=== PATIENT | female | born 1950 | race Caucasian/White ===

== ENCOUNTER 2017-04-20 09:37 | Outpatient (CLI) | payer OTHER ==
--- NOTE | 2017-04-22 12:24 | Mammography Report ---
DIGITAL SCREENING MAMMOGRAM: 04/20/2017 CLINICAL INDICATION: A 67-year-old for screening. The patient reports having had previous mammograms in [place], [place], but films are not yet avai lable for direct comparison. If they become available, an addendum will be issued. Otherwise, this will serve as a new baseline. TECHNIQUE: Routine CC and MLO projections were obtained of the breasts. FINDINGS: The breasts demonstrate scattered fibroglandular densities bilaterally. No suspicious mas ses, clustered microcalcifications, or regions of architectural distortion are identified. IMPRESSION: NEGATIVE EXAMINATION. RECOMMENDATION: Routine annual screening unless otherwise clinically indicated. BIRADS CATEGORY 1 - NEGATIVE. STANDARD QUALIFYING STATEMENTS 1. This examination was reviewed with the aid of Computer-Aided Detection (CAD). 2. A negative or benign imaging report should not delay biopsy if clinically suspicious findings are present. Consider surgical consultation if warranted. More than 5% of cancers are not identified by i maging. 3. Dense breasts may obscure an underlying neoplasm. JOB #: [id number] EXT JOB #:[id number]
== END 2017-04-20 09:38 | disposition home or self-care (01) ==
LOC: DI 09:37
PROVIDERS: ATTEND Internal Medicine
DX: Z12.31 Encounter for screening mammogram for malignant neoplasm of breast (principal)
CPT/HCPCS: 77067

== ENCOUNTER 2017-12-01 08:22 | Outpatient (CLI) | payer MEDICARE, OTHER ==
[2017-12-01 12:36] LABS: BASOPHILS % (AUTO) 0.4 %; EOSINOPHILS # (AUTO) 0.2 10^3/uL (0.0-0.7); EOSINOPHILS % (AUTO) 2.9 %; HGB - HEMOGLOBIN 14.5 g/dL (12.0-16.0); LYMPHOCYTES # (AUTO) 2.1 10^3/uL (1.5-3.5); LYMPHOCYTES % (AUTO) 27.8 %; MEAN CORPUSCULAR HEMOGLOBIN 32.6 pg (27.0-31.0); MEAN CORPUSCULAR HGB CONC 33.7 g/dL (32.0-36.0); MEAN CORPUSCULAR VOLUME 96.7 fL (81.0-99.0); MEAN PLATELET VOLUME 8.7 fL (7.9-10.8); MONOCYTES # (AUTO) 0.6 10^3/uL (0.0-1.0); MONOCYTES % (AUTO) 8.1 %; NEUTROPHILS # (AUTO) 4.6 10^3/uL (1.5-6.6); NEUTROPHILS % (AUTO) 60.8 %; PLT - PLATELET COUNT 198 10^3/uL (130-450); RED BLOOD COUNT 4.44 10^6/uL (4.20-5.40); RED CELL DISTRIBUTION WIDTH 13.3 % (12.0-15.0); WHITE BLOOD COUNT 7.5 x10^3/uL (4.8-10.8)
[2017-12-01 12:54] LABS: ALBUMIN 4.2 g/dL (3.2-5.5); ALBUMIN/GLOBULIN RATIO 1.5 (1.0-2.2); ALKALINE PHOSPHATASE 67 IU/L (42-121); ALT ALANINE AMINOTRANSFERASE 16 IU/L (10-60); AST ASPARTATE AMINOTRANSFERASE 20 IU/L (10-42); BILIRUBIN,TOTAL 0.6 mg/dL (0.2-1.0); BUN - BLOOD UREA NITROGEN 14 mg/dL (6-20); CARBON DIOXIDE - CO2 28 mmol/L (21-32); CHLORIDE 108 mmol/L (101-111); CHOL/HDL RATIO 3.8 (<4.4); CHOLESTEROL 214 mg/dL; CREATININE 0.7 mg/dL (0.4-1.0); GFR - MDRD 83 (>89); GLUCOSE 96 mg/dL (70-100); HDL CHOLESTEROL 56 mg/dL; LDL CHOLESTEROL,CALCULATED 146 mg/dL; LDL/HDL RATIO 2.6 (<4.4); SODIUM 140 mmol/L (135-145); VLDL CHOLESTEROL 12 mg/dL
== END 2017-12-01 08:23 | disposition home or self-care (01) ==
LOC: LAB.WCP 08:22
PROVIDERS: ATTEND Family Medicine
DX: E03.9 Hypothyroidism, unspecified (principal)
CPT/HCPCS: 36415; 80053; 80061; 83721; 84443; 85025

== ENCOUNTER 2018-05-26 08:53 | Outpatient (CLI) | payer MEDICARE ==
--- NOTE | 2018-05-26 16:09 | XRAY Report ---
Reason: LOW BACK PAIN,PAIN IN LEFT THIGH Procedure Date: 05/26/2018 Accession Number: [id number] / [id number] Procedure: XR - Lumbar Spine 2 View CPT Code: FULL RESULT: EXAM: LUMBOSACRAL SPINE RADIOGRAPHY EXAM DATE: 05/26/2018 09:15 AM. CLINICAL HISTORY: Low back pain, pain in left thigh. COMPARISONS: None. TECHNIQUE: 3 views. FINDINGS: Alignment: 3 mm anterolisthesis of L4 on L5. No scoliosis. Bones: Five jaz-xxe-jajbitp lumbar vertebral bodies are present. No fractures or bone lesions. Disks: Disk space height is mostly maintained, mild loss of height at L5-S1. Facets: There are multilevel facet degenerative changes mild in the upper lumbar spine and at least moderate at L4 and L5. Sacroiliac Joints: Unremarkable. Soft Tissues: Normal. The visualized bowel gas pattern is normal. IMPRESSION: Degenerative changes with grade 1 anterolisthesis at L4 as described. RADIA
--- NOTE | 2018-05-26 16:09 | XRAY Report ---
Reason: LOW BACK PAIN,PAIN IN LEFT THIGH Procedure Date: 05/26/2018 Accession Number: [id number] / [id number] Procedure: XR - Hip w/Pelvis 2-3V LT CPT Code: FULL RESULT: EXAM: LEFT HIP AND PELVIS RADIOGRAPHY EXAM DATE: 05/26/2018 09:15 AM. HISTORY: Low back pain, pain in left thigh. COMPARISONS: None. TECHNIQUE: 1 view of the pelvis and 1 view of the hip. FINDINGS: Bones: Normal. No fracture or bone lesion. Joints: Moderate femoral acetabular joint space narrowing on the left. Soft Tissues: Normal. No soft tissue swelling. IMPRESSION: Left greater than right hip joint degenerative disease. RADIA
== END 2018-05-26 08:54 | disposition home or self-care (01) ==
LOC: DI 08:53
PROVIDERS: ATTEND Family Medicine
DX: M54.5 Low back pain (principal); M79.652 Pain in left thigh; M43.16 Spondylolisthesis, lumbar region; M16.0 Bilateral primary osteoarthritis of hip
CPT/HCPCS: 72100

== ENCOUNTER 2018-06-01 13:07 | Outpatient (CLI) | payer MEDICARE ==
--- NOTE | 2018-06-05 09:17 | DEXA Report ---
Reason: ASYMPTOMATIC POSTMENOPAUSAL STATUS Procedure Date: 06/01/2018 Accession Number: [id number] / [id number] Procedure: DEX - Dexa Spine and/or Hip CPT Code: FULL RESULT: EXAM: Dexa Spine and/or Hip DATE: 06/01/2018 1:39 PM CLINICAL HISTORY: ASYMPTOMATIC POSTMENOPAUSAL STATUS TECHNIQUE: Dual energy x-ray absorptiometry (DXA) was performed on a [employer] System. Regions measured are the AP Spine, femoral neck, and if needed forearm. COMPARISON: 05/25/2016. In accordance with the International Society for Clinical Densitometry (ISCD) guidelines, data from previous exams may be reanalyzed using current recommendations and techniques. This is done to allow a more accurate basis for comparison with the current study. FINDINGS: The data for the lumbar spine is as follows: BMD (g/cm/cm) T-SCORE Z-SCORE REGION L1 0.892 -2.0 0.2 L2 0.933 -2.2 -0.1 L3 0.926 -2.3 -0.1 L4 0.987 -1.8 0.4 TOTAL 0.938 -2.0 0.2 NOTE: All evaluable vertebrae are used for classification The data for the hip is as follows: BMD (g/cm/cm) T-SCORE Z-SCORE REGION Neck 0.779 -1.9 0.1 TOTAL 0.651 -2.8 -1.0 NOTE: The femoral neck or total proximal femur, whichever is lowest, is used for classification. DXA RESULTS SUMMARY: Spine SCAN DATE AGE BMD CHANGE VS CHANGE VS PREVIOUS PREVIOUS % 06/01/2019 [age] 0[age]938 0.024 2.6 05/25/2016 [age] 0[age]914 * Denotes significant change at the 95% confidence level. Denotes dissimilar scan types or analysis methods. DXA RESULTS SUMMARY: Hip SCAN DATE AGE BMD CHANGE VS CHANGE VS PREVIOUS PREVIOUS % [birth year]2018 [age] 0.651 -0.015 -2.3 05/25/2016 66.3 0.666 * Denotes significant change at the 95% confidence level. Denotes dissimilar scan types or analysis methods. IMPRESSION: THE WHO CLASSIFICATION BASED ON THE INTERNATIONAL REFERENCE STANDARD IS OSTEOPOROSIS. THE FRACTURE RISK IS HIGH. RECOMMENDATION: Patients with diagnosis of osteoporosis or osteopenia should have regular bone mineral density assessment. For those eligible for Medicare, routine testing is allowed once every 2 years. Testing frequency can be increased for patients who have rapidly progressing disease or for those who are receiving medical therapy to restore bone mass. COMMENT: World Health Organization (WHO) definitions for osteoporosis and osteopenia: NORMAL BMD: T-score at -1.0 or higher, fracture risk is low OSTEOPENIA BMD: T-score between -1.0 and -2.5, fracture risk is increased. OSTEOPOROSIS BMD: T-score at -2.5 or lower, fracture risk is high. National Osteoporosis Foundation recommends: 1. Obtain adequate dietary calcium (at least 1200 mg per day) and vitamin D (400-800 international units per day). 2. Participate, as appropriate, in regular weightbearing and muscle-strengthening exercise. 3. Avoid tobacco use and reduce alcohol and caffeine intake. 4. For more detailed information see the website at www.NOF.org.
== END 2018-06-01 13:08 | disposition home or self-care (01) ==
LOC: DI 13:07
PROVIDERS: ATTEND Family Medicine
DX: M81.0 Age-related osteoporosis without current pathological fracture (principal); Z78.0 Asymptomatic menopausal state
CPT/HCPCS: 77080

== ENCOUNTER 2018-06-15 12:54 | Outpatient (CLI) | payer MEDICARE ==
--- NOTE | 2018-06-16 11:45 | Mammography Report ---
Reason: SCREENING MAMMO Procedure Date: 06/15/2018 Accession Number: [id number] / [id number] Procedure: ETHAN - Screening Mammo w/Mitchel CPT Code: FULL RESULT: EXAM: Screening Mammo w/Mitchel DATE: 06/15/2018 1:22 PM CLINICAL HISTORY: Routine screening TECHNIQUE: Bilateral CC and MLO views were obtained. COMPARISON: 04/20/2017, 11/14/2014 and 11/16/2012 FINDINGS: There are scattered fibroglandular densities. There is no significant interval change. No suspicious masses, clustered microcalcifications, or regions of architectural distortion are identified. IMPRESSION: Negative examination RECOMMENDATION: Routine annual screening unless otherwise clinically indicated. BIRADS CATEGORY 1: Negative STANDARD QUALIFYING STATEMENTS: 1. This examination was not reviewed with the aid of Computer-Aided Detection (CAD). 2. A negative or benign imaging report should not delay biopsy if clinically suspicious findings are present. Consider surgical consultation if warrented. More than 5% of cancers are not identified by imaging. 3. Dense breasts may obscure an underlying neoplasm. 4. This examination was reviewed with the aid of 3D breast imaging (tomosynthesis).
== END 2018-06-15 12:55 | disposition home or self-care (01) ==
LOC: DI 12:54
DX: Z12.31 Encounter for screening mammogram for malignant neoplasm of breast (principal)
CPT/HCPCS: 77063; 77067

== ENCOUNTER 2018-12-01 08:00 | Outpatient (CLI) | payer MEDICARE ==
[2018-12-01 19:03] LABS: ALBUMIN 3.9 g/dL (3.2-5.5); ALBUMIN/GLOBULIN RATIO 1.3 (1.0-2.2); ALKALINE PHOSPHATASE 74 IU/L (42-121); ALT ALANINE AMINOTRANSFERASE 18 IU/L (10-60); AST ASPARTATE AMINOTRANSFERASE 23 IU/L (10-42); BILIRUBIN,TOTAL 0.5 mg/dL (0.2-1.0); BUN - BLOOD UREA NITROGEN 16 mg/dL (6-20); CALCIUM 8.8 mg/dL (8.5-10.3); CARBON DIOXIDE - CO2 28 mmol/L (21-32); CHLORIDE 107 mmol/L (101-111); CHOL/HDL RATIO 3.4 (<4.4); CHOLESTEROL 192 mg/dL; CREATININE 0.7 mg/dL (0.4-1.0); GFR - MDRD 83 (>89); GLUCOSE 83 mg/dL (70-100); HDL CHOLESTEROL 56 mg/dL; LDL CHOLESTEROL,CALCULATED 125 mg/dL; LDL/HDL RATIO 2.2 (<4.4); SODIUM 141 mmol/L (135-145); TOTAL PROTEIN 6.9 g/dL (6.7-8.2); VLDL CHOLESTEROL 11 mg/dL
[2018-12-02 14:40] LABS: HEPATITIS C ANTIBODY NON-REACTIVE (NON-REACTIVE)
[2018-12-04 16:36] LABS: HIV AG/AB 4TH GEN NON-REACTIVE (NON-REACTIVE)
[2018-12-05 10:24] LABS: HSV 2 IGG TYPE SPECIFIC AB <0.90 index
== END 2018-12-01 23:59 | disposition home or self-care (01) ==
LOC: LAB.WCP 08:00
PROVIDERS: ATTEND Family Medicine
DX: Z13.220 Encounter for screening for lipoid disorders (principal); Z11.3 Encounter for screening for infections with a predominantly sexual mode of transmission; R10.9 Unspecified abdominal pain; E03.9 Hypothyroidism, unspecified
CPT/HCPCS: 36415; 80053; 80061; 81599; 84443; 86592; 86695; 86696; 86803; 87491; 87591; G0475; 83721; 87389

== ENCOUNTER 2018-12-14 11:14 | Outpatient (CLI) | payer MEDICARE ==
--- NOTE | 2018-12-14 13:39 | Ultrasound Report ---
Reason: ABDOMINAL PAIN Procedure Date: 12/14/2018 Accession Number: [id number] / [id number] Procedure: US - Pelvic w/Transvaginal CPT Code: FULL RESULT: EXAM: PELVIC ULTRASOUND EXAM DATE: 12/14/2018 11:43 AM. CLINICAL HISTORY: Abdominal pain. COMPARISON: None. TECHNIQUE: Realtime transabdominal pelvic scan performed to identify the uterus and adnexa and as an overview of other pelvic structures, followed by transvaginal scan to provide greater detail of the uterus and adnexa, with static image documentation. FINDINGS: Uterus: 6.1 x 2.0 x 3.2 cm, volume 20 cc. Anteverted position. Normal overall size and echotexture. Prominent periuterine venous plexus is noted. Masses: None. Endometrium: 3 mm. Fluid is seen within the fundal endometrium. Cervix: Unremarkable aside from nabothian cysts. Right Ovary: 1.5 x 1.0 x 0.8 cm, volume 0.6 cc. Normal echotexture and blood flow. Left Ovary: Not seen. Free Fluid: None. Other: None. IMPRESSION: Prominent periuterine venous plexus. This finding is nonspecific but can sometimes be seen with pelvic congestion syndrome/pelvic varices. RADIA
== END 2018-12-14 11:15 | disposition home or self-care (01) ==
LOC: DI 11:14
PROVIDERS: ATTEND Family Medicine
DX: R10.9 Unspecified abdominal pain (principal)
CPT/HCPCS: 76830; 76856

== ENCOUNTER 2019-01-25 07:20 | Day surgery (SDC) | payer MEDICARE ==
[2019-01-25] MEDS ORDERED: LACTATED RINGERS 1,000 ML IV ONE (07:30)
[2019-01-25] MEDS ORDERED: MIDAZOLAM 2 MG/2 ML VIAL IVP ONE (09:34)
[2019-01-25] MEDS ORDERED: fentaNYL 100 MCG/2 ML VIAL IVP ONE (09:34)
[2019-01-25] MEDS ORDERED: LIDO GARGLE 30 ML BOTTLE TOP ONE (09:36)
[2019-01-25] MEDS ORDERED: LIDO GARGLE 30 ML BOTTLE ONE (09:36)
[2019-01-25 10:30] VITALS: BP 116/70
== END 2019-01-25 07:21 | disposition home or self-care (01) ==
LOC: SDS 07:20
PROVIDERS: ATTEND Surgery
PROC: 0DJD8ZZ Inspection of Lower Intestinal Tract, Via Natural or Artificial Opening Endoscopic (ICD-10-PCS; principal; 2019-01-25 09:15)
PROC: 0DJ08ZZ Inspection of Upper Intestinal Tract, Via Natural or Artificial Opening Endoscopic (ICD-10-PCS; 2019-01-25 09:15)
DX: R63.4 Abnormal weight loss (principal); R10.13 Epigastric pain; R19.4 Change in bowel habit; K57.30 Diverticulosis of large intestine without perforation or abscess without bleeding; K64.8 Other hemorrhoids; E03.9 Hypothyroidism, unspecified; Z79.899 Other long term (current) drug therapy; Z63.4 Disappearance and death of family member; Z87.891 Personal history of nicotine dependence; Z68.20 Body mass index [BMI] 20.0-20.9, adult
CPT/HCPCS: 43235; 45378; A9270; J7120

== ENCOUNTER 2019-03-09 07:21 | Outpatient (CLI) | payer MEDICARE ==
--- NOTE | 2019-03-09 18:20 | MRI Report ---
Reason: SHOULDER PAIN FOREARM PAIN,LT, CERVICAL RADICULOPA Procedure Date: 03/09/2019 Accession Number: [id number] / [id number] Procedure: MRI - Cervical Spine W/O CPT Code: FULL RESULT: EXAM: MRI CERVICAL SPINE WITHOUT CONTRAST EXAM DATE: 03/09/2019 07:37 AM. CLINICAL HISTORY: Shoulder pain, forearm pain, left, cervical radiculopathy. COMPARISONS: None. TECHNIQUE: Multiplanar, multisequence T1-weighted and fluid-sensitive sequences of the cervical spine without contrast. Other: None. FINDINGS: Neurologic Structures: The visualized posterior fossa structures are unremarkable. No signal abnormality in the visualized spinal cord. Alignment: No scoliosis or spondylolisthesis. Bone Marrow: No gross fractures or bone lesions. No marrow edema. Interspace Levels/Facets: C1-C2: Arthritic changes at the anterior articulation. Some subjacent marrow edema. No stenosis. C2-C3: Mild broad-based disk bulge is seen. Prominent facets. No central or foraminal stenosis. C3-C4: Right paracentral disk osteophyte complex touches the right ventral cord. Severe left foraminal stenosis. Moderate right foraminal stenosis. C4-C5: Mild broad-based disk bulge is present. Hypertrophic facets. Mild central stenosis. Moderate bilateral foraminal stenosis. C5-C6: Disk osteophyte complex. Hypertrophic facets and ligamentum flavum. Mild central stenosis. Moderate to severe bilateral foraminal stenosis. C6-C7: Disk dehydration, broad-based disk bulge. Mild central stenosis. Mild bilateral foraminal stenosis. C7-T1: Some disk dehydration. No stenosis. Musculature: Moderate fatty atrophy of the multifidus muscle is present. Other: The paravertebral and prevertebral soft tissues are normal. IMPRESSION: 1. Posterior fossa structures appear unremarkable. Spinal cord also normal. Moderate fatty atrophy of the multifidus muscle is seen. No scoliosis or listhesis. No fractures. 2. C2-C3 shows a mild broad-based bulge, no stenosis. 3. C3-C4 shows severe left foraminal stenosis and moderate right foraminal stenosis. Mild central stenosis. 4. C4-C5 shows hypertrophic facets, mild central stenosis and moderate bilateral foraminal stenosis. 5. C5-C6 shows disk osteophyte complex, mild central stenosis and moderate to severe bilateral foraminal stenosis. 6. C6-C7 shows disk dehydration. Mild central stenosis and mild bilateral foraminal stenosis. 7. C7-T1 shows some disk dehydration, no stenosis. RADIA
--- NOTE | 2019-03-09 21:39 | MRI Report ---
Reason: SHOULDER PAIN FOREARM PAIN,LT, CERVICAL RADICULOPA Procedure Date: 03/09/2019 Accession Number: [id number] / [id number] Procedure: MRI - Shoulder LT W/O CPT Code: FULL RESULT: EXAM: LEFT SHOULDER MRI WITHOUT CONTRAST EXAM DATE: 03/09/2019 08:11 AM. CLINICAL HISTORY: Shoulder pain forearm pain, left, cervical radiculopathy. COMPARISON: None. TECHNIQUE: Multiplanar, multisequence T1-weighted and fluid-sensitive sequences of the shoulder without contrast. Other: None. FINDINGS: Acromioclavicular Region: The acromion is type II unipartite. AC joint shows mild to moderate osteoarthritic change, some synovial hypertrophic changes and marginal arthrosis is present. The coracoacromial and coracoclavicular ligaments are intact. Small amount of bursal fluid is present. Glenohumeral Region: No subluxation. Small joint effusion. Some debris seen in the axillary pouch. Some debris also seen in the subcoracoid bursa. The articular cartilage is unremarkable. The glenohumeral ligaments and joint capsule are unremarkable. Bone Marrow: No fracture, marrow edema or bone lesions. Labrum: Carver variant, no labral tear. Musculature/Rotator Cuff: Increased T2 signal in the subscapularis, supraspinatus and infraspinatus portion of the rotator cuff, no partial-thickness or full-thickness fluid-filled gaps are identified. Teres minor is normal. No proximal muscular edema or fatty atrophy. Biceps Tendon: The long head of the biceps tendon and biceps anny are intact. Other: The subcutaneous tissues are unremarkable. IMPRESSION: 1. Type II unipartite undersurface osseous acromion shape. AC joint shows mild to moderate osteoarthritic change. 2. Small joint effusion. Some debris seen in the axillary pouch and in the subcoracoid bursa. 3. Carver variant anterior labrum, no tear. 3. Moderate tendinitis involves the subscapularis, supraspinatus and infraspinatus portion of the rotator cuff, no other worrisome imaging features. RADIA
--- NOTE | 2019-03-09 21:50 | MRI Report ---
Reason: SHOULDER PAIN FOREARM PAIN,LT, CERVICAL RADICULOPA Procedure Date: 03/09/2019 Accession Number: [id number] / [id number] Procedure: MRI - Forearm LT W/O CPT Code: FULL RESULT: EXAM: LEFT FOREARM MRI WITHOUT CONTRAST EXAM DATE: 03/09/2019 08:41 AM. CLINICAL HISTORY: Shoulder pain forearm pain, left, cervical radiculopathy. COMPARISON: None. TECHNIQUE: Multiplanar, multisequence T1-weighted and fluid-sensitive sequences of the forearm without contrast. Other: None. FINDINGS: Bones: No fractures or subluxations. No marrow edema. No bone lesions. Joint Spaces: Visualized portions of the wrist and elbow joints are unremarkable. Ligaments: The interosseous membrane is intact. Tendons: Where visualized, the proximal wrist tendons are intact. No musculotendinous edema or fatty atrophy. Musculature: Focal area of concern is marked over the proximal forearm in the region of the brachioradialis muscle. In this location, no areas of abnormal signal. Normal anatomy is demonstrated. Other: The subcutaneous tissues are unremarkable. Radial, ulnar nerves, median nerve have a normal appearance. No subcutaneous soft tissue swelling or edema. IMPRESSION: 1. Overall, normal exam. No evidence for source of the patient's complaint of pain on the basis of this test. RADIA
== END 2019-03-09 07:22 | disposition home or self-care (01) ==
LOC: DI 07:21
PROVIDERS: ATTEND Family Medicine
DX: M79.632 Pain in left forearm (principal); M19.012 Primary osteoarthritis, left shoulder; M25.412 Effusion, left shoulder; M75.92 Shoulder lesion, unspecified, left shoulder; M47.812 Spondylosis without myelopathy or radiculopathy, cervical region; M50.321 Other cervical disc degeneration at C4-C5 level; M48.02 Spinal stenosis, cervical region
CPT/HCPCS: 72141

== ENCOUNTER 2019-09-06 08:00 | Outpatient (CLI) | payer MEDICARE ==
[2019-09-06 18:57] LABS: BASOPHILS % (AUTO) 0.3 %; EOSINOPHILS # (AUTO) 0.1 10^3/uL (0.0-0.7); HGB - HEMOGLOBIN 13.4 g/dL (12.0-16.0); LYMPHOCYTES # (AUTO) 1.2 10^3/uL (1.5-3.5); LYMPHOCYTES % (AUTO) 17.1 %; MEAN CORPUSCULAR HEMOGLOBIN 32.8 pg (27.0-31.0); MEAN CORPUSCULAR HGB CONC 32.5 g/dL (32.0-36.0); MEAN PLATELET VOLUME 10.6 fL (7.9-10.8); MONOCYTES # (AUTO) 0.4 10^3/uL (0.0-1.0); MONOCYTES % (AUTO) 6.3 %; NEUTROPHILS # (AUTO) 5.3 10^3/uL (1.5-6.6); PLT - PLATELET COUNT 236 10^3/uL (130-450); RED BLOOD COUNT 4.08 10^6/uL (4.20-5.40); RED CELL DISTRIBUTION WIDTH 13.1 % (12.0-15.0)
[2019-09-06 19:06] LABS: ALBUMIN 4.3 g/dL (3.2-5.5); ALBUMIN/GLOBULIN RATIO 1.7 (1.0-2.2); BILIRUBIN,TOTAL 0.8 mg/dL (0.2-1.0); CALCIUM 9.1 mg/dL (8.5-10.3); CREATININE 0.6 mg/dL (0.4-1.0); TOTAL PROTEIN 6.9 g/dL (6.7-8.2)
[2019-09-06 19:09] LABS: PT - PROTHROMBIN TIME 11.3 secs (9.9-12.6)
[2019-09-06 19:41] LABS: PARTIAL THROMBOPLASTIN TIME 24.4 secs (24.9-33.3)
== END 2019-09-06 23:59 | disposition home or self-care (01) ==
LOC: LAB.WCP 08:00
PROVIDERS: ATTEND Physician Assistant Medical
DX: M19.90 Unspecified osteoarthritis, unspecified site (principal); R63.4 Abnormal weight loss; M16.10 Unilateral primary osteoarthritis, unspecified hip
CPT/HCPCS: 36415; 80053; 85025; 85610; 85730

== ENCOUNTER 2020-04-09 13:45 | Outpatient (CLI) | payer MEDICARE ==
--- NOTE | 2020-04-10 10:02 | Mammography Report ---
BILATERAL DIGITAL SCREENING MAMMOGRAM 3D/2D: 04/09/2020 CLINICAL: Routine screening. Comparison is made to exams dated: 06/15/2018 mammogram, 04/20/2017 mammogram - [facility], and 11/14/2014 mammogram - [facility]. There are scattered fibroglandular elements in both breasts. There are benign vascular calcifications in the right breast. No significant masses, calcifications, or other findings are seen in either breast. There has been no significant interval change. IMPRESSION: BENIGN There is no mammographic evidence of malignancy. A 1 year screening mammogram is recommended. This exam was interpreted at Station ID: [id number]. NOTE: For mammograms, a report in lay terms will be sent to the patient. Approximately 15% of breast malignancies will not be visualized mammographically. In the management of a palpable breast mass, a negative mammogram must not discourage biopsy of a clinically suspicious lesion. Electronically Signed By: Ilsa tellez/deweyrad:04/09/2020 15:57:20 ACR BI-RADS Category 2: Benign Finding(s) 3342F PARENCHYMAL PATTERN: (A) - The breast(s) demonstrate(s) scattered fibroglandular densities. BI-RADS CATEGORY: (2) - 2 RECOMMENDATION: (ANNUAL) - Recommend routine annual screening mammography. [id number] 1 year screening LATERALITY: (B)
== END 2020-04-09 13:46 | disposition home or self-care (01) ==
LOC: DI 13:45
DX: Z12.31 Encounter for screening mammogram for malignant neoplasm of breast (principal)
CPT/HCPCS: 77063; 77067

== ENCOUNTER 2020-10-24 15:48 | Outpatient (CLI) | payer MEDICARE ==
--- NOTE | 2020-10-24 16:36 | XRAY Report ---
PROCEDURE: Cervical Spine Complete INDICATIONS: NECK PAIN TECHNIQUE: 6 view(s) of the cervical spine were acquired. COMPARISON: None. FINDINGS: No fracture. Grade 1 anterolisthesis of C4 on C5. Scattered multilevel endplate spurring and diffuse facet arthropathy. Diffuse moderate narrowing of the cervical spine disc spaces. Moderate to severe right C3-C4 bony for aminal narrowing Scattered carotid atherosclerotic calcified plaque. Levocurvature. IMPRESSION: Diffuse moderate cervical spondylosis and facet arthropathy. Grade 1 anterolisthesis of C4 on C5 Levocurvature of the cervical spine Bilateral carotid atherosclerosis Reviewed by: Brandon Roy MD on 10/24/2020 4:35 PM PST Approved by: Brandon Roy MD on 10/24/2020 4:35 PM PST Station ID: [id number]
== END 2020-10-24 15:49 | disposition home or self-care (01) ==
LOC: DI 15:48
PROVIDERS: ATTEND Physical Medicine & Rehabilitation
DX: M47.812 Spondylosis without myelopathy or radiculopathy, cervical region (principal); M43.12 Spondylolisthesis, cervical region; I65.23 Occlusion and stenosis of bilateral carotid arteries

== ENCOUNTER 2020-10-29 08:00 | Outpatient (CLI) | payer MEDICARE ==
[2020-10-29 18:19] LABS: BASOPHILS % (AUTO) 0.3 %; EOSINOPHILS # (AUTO) 0.2 10^3/uL (0.0-0.7); EOSINOPHILS % (AUTO) 2.6 %; HCT - HEMATOCRIT 42.5 % (37.0-47.0); HGB - HEMOGLOBIN 13.4 g/dL (12.0-16.0); LYMPHOCYTES % (AUTO) 32.8 %; MEAN CORPUSCULAR HGB CONC 31.5 g/dL (32.0-36.0); MEAN CORPUSCULAR VOLUME 101.4 fL (81.0-99.0); MONOCYTES # (AUTO) 0.5 10^3/uL (0.0-1.0); MONOCYTES % (AUTO) 8.6 %; NEUTROPHILS # (AUTO) 3.4 10^3/uL (1.5-6.6); NEUTROPHILS % (AUTO) 55.4 %; PLT - PLATELET COUNT 210 10^3/uL (130-450); RED BLOOD COUNT 4.19 10^6/uL (4.20-5.40); RED CELL DISTRIBUTION WIDTH 12.8 % (12.0-15.0); WHITE BLOOD COUNT 6.1 x10^3/uL (4.8-10.8)
[2020-10-29 19:09] LABS: THYROID STIMULATING HORMONE 4.42 uIU/mL (0.34-5.60)
[2020-10-29 19:48] LABS: ALBUMIN 4.5 g/dL (3.2-5.5); ALBUMIN/GLOBULIN RATIO 1.9 (1.0-2.2); BILIRUBIN,TOTAL 0.3 mg/dL (0.2-1.0); CALCIUM 9.5 mg/dL (8.5-10.3); CREATININE 0.7 mg/dL (0.4-1.0); POTASSIUM 4.5 mmol/L (3.5-5.0); TOTAL PROTEIN 6.9 g/dL (6.7-8.2)
== END 2020-10-29 23:59 | disposition home or self-care (01) ==
LOC: LAB.WCP 08:00
PROVIDERS: ATTEND Physician Assistant Medical
DX: E03.9 Hypothyroidism, unspecified (principal); R63.4 Abnormal weight loss; M16.10 Unilateral primary osteoarthritis, unspecified hip
CPT/HCPCS: 36415; 80053; 84443; 85025

== ENCOUNTER 2020-11-14 12:46 | Outpatient (CLI) | payer MEDICARE ==
--- NOTE | 2020-11-14 16:46 | DEXA Report ---
PROCEDURE: Dexa Spine and/or Hip INDICATIONS: POST MENOPAUSAL TECHNIQUE: Dual energy x-ray absorptiometry (DXA) was performed on a [employer] System. Regions measur ed are the AP Spine, femoral neck, and if needed forearm. COMPARISON: 06/01/2018 and 05/25/2016. FINDINGS: Lumbar Spine: Bone Mineral Density 0.906 g/cm/cm,T score -2.3, osteopenia Left Hip: Bone Mineral Density 0.650 g/cm/cm,T score -2.8, osteoporosis Left Femoral Neck: Bone Mineral Density 0.775 g/cm/cm, T score -1.9, osteopenia (T score greater or equal to -1.0: NORMAL) (T score from -1.1 to -2.4: OSTEOPENIA) (T score less than or equal to -2.5 to: OSTEOPOROSIS) Impression: Osteoporosis. Bone mineral density has decreased 0.2% interval since prior exam taken 06/2018. Patients with diagnosis of osteoporosis or osteopenia should have regular bone mineral density assess ment. For those eligible for Medicare, routine testing is allowed once every 2 years. Testing frequ ency can be increased for patients who have rapidly progressing disease or for those who are receivin g medical therapy to restore bone mass. Reviewed by: Katie Santana MD, PhD on 11/14/2020 4:45 PM PDT Approved by: Katie Santana MD, PhD on 11/14/2020 4:45 PM PDT Station ID: [id number]
== END 2020-11-14 12:47 | disposition home or self-care (01) ==
LOC: DI 12:46
PROVIDERS: ATTEND Physician Assistant Medical
DX: M81.0 Age-related osteoporosis without current pathological fracture (principal)

== ENCOUNTER 2021-02-18 10:42 | Outpatient (CLI) | payer MEDICARE ==
--- NOTE | 2021-02-18 11:31 | XRAY Report ---
PROCEDURE: Hips 2V BILAT INDICATIONS: ARTHRITIS HIP TECHNIQUE: 6 total views of the bilateral hips were acquired. COMPARISON: 05/26/2018 hip left side FINDINGS: Bones: No fractures or dislocations. There is bilateral severe degenerative hip joint osteoarthriti s with [id number]-zr-xjoq-articulation, but no sign of prior or recent trauma. No suspicious bony lesions. The visualized pelvic ring appears intact. Soft tissues: No suspicious soft tissue calcifications or masses. IMPRESSION: Severe symmetric bilateral hip joint osteoarthritis. No trauma found. Reviewed by: Brent Campa MD on 02/18/2021 11:30 AM PDT Approved by: Brent Campa MD on 02/18/2021 11:30 AM PDT Station ID: [id number]
== END 2021-02-18 10:43 | disposition home or self-care (01) ==
LOC: DI 10:42
PROVIDERS: ATTEND Physician Assistant Medical
DX: M16.0 Bilateral primary osteoarthritis of hip (principal)

== ENCOUNTER 2021-05-18 09:18 | Outpatient (CLI) | payer MEDICARE ==
--- NOTE | 2021-05-19 08:51 | Mammography Report ---
BILATERAL DIGITAL SCREENING MAMMOGRAM 3D/2D: 05/18/2021 CLINICAL: Routine screening. Comparison is made to exams dated: 04/09/2020 mammogram, 06/15/2018 mammogram, 04/20/2017 mammogram - [facility], and 11/14/2014 mammogram - [facility]. There are scattered fibrog landular elements in both breasts. There are benign vascular calcifications in the right breast. No significant masses, calcifications, or other findings are seen in either breast. There has been no significant interval change. IMPRESSION: BENIGN There is no mammographic evidence of malignancy. A 1 year screening mammogram is recommended. This exam was interpreted at Station ID: [id number]. NOTE: For mammograms, a report in lay terms will be sent to the patient. Approximately 15% of breast malignancies will not be visualized mammographically. In the management of a palpable breast mass, a negative mammogram must not discourage biopsy of a clinically suspicious lesion. Electronically Signed By: Moses Samson M.D. ddgen/gladis:05/18/2021 10:04:14 ACR BI-RADS Category 2: Benign Finding(s) 3342F PARENCHYMAL PATTERN: (A) - The breast(s) demonstrate(s) scattered fibroglandular densities. BI-RADS CATEGORY: (2) - 2 RECOMMENDATION: (ANNUAL) - Recommend routine annual screening mammography. [id number] 1 year screening LATERALITY: (B)
== END 2021-05-18 09:19 | disposition home or self-care (01) ==
LOC: DI 09:18
DX: Z12.31 Encounter for screening mammogram for malignant neoplasm of breast (principal)

== ENCOUNTER 2021-09-18 15:52 | Outpatient (CLI) | payer MEDICARE ==
[2021-09-18 18:35] LABS: BASOPHILS % (AUTO) 0.2 %; HCT - HEMATOCRIT 41.6 % (37.0-47.0); HGB - HEMOGLOBIN 13.3 g/dL (12.0-16.0); LYMPHOCYTES # (AUTO) 1.5 10^3/uL (1.5-3.5); LYMPHOCYTES % (AUTO) 28.9 %; MEAN CORPUSCULAR HEMOGLOBIN 31.1 pg (27.0-31.0); MEAN CORPUSCULAR VOLUME 97.2 fL (81.0-99.0); MEAN PLATELET VOLUME 10.9 fL (7.9-10.8); MONOCYTES # (AUTO) 0.5 10^3/uL (0.0-1.0); MONOCYTES % (AUTO) 9.7 %; NEUTROPHILS # (AUTO) 3.1 10^3/uL (1.5-6.6); NEUTROPHILS % (AUTO) 60.8 %; PLT - PLATELET COUNT 193 10^3/uL (130-450); RED BLOOD COUNT 4.28 10^6/uL (4.20-5.40); RED CELL DISTRIBUTION WIDTH 13.2 % (12.0-15.0); WHITE BLOOD COUNT 5.2 x10^3/uL (4.8-10.8)
[2021-09-18 18:43] LABS: ALBUMIN 4.6 g/dL (3.2-5.5); ALBUMIN/GLOBULIN RATIO 1.6 (1.0-2.2); BILIRUBIN,TOTAL 0.6 mg/dL (0.2-1.0); CALCIUM 9.3 mg/dL (8.5-10.3); CREATININE 0.7 mg/dL (0.4-1.0); POTASSIUM 4.3 mmol/L (3.5-5.0); TOTAL PROTEIN 7.4 g/dL (6.7-8.2)
[2021-09-18 18:56] LABS: THYROID STIMULATING HORMONE 2.21 uIU/mL (0.34-5.60)
== END 2021-09-18 15:53 | disposition home or self-care (01) ==
LOC: LAB.N 15:52
PROVIDERS: ATTEND Physician Assistant Medical
DX: E03.9 Hypothyroidism, unspecified (principal)
CPT/HCPCS: 36415; 80053; 84443; 85025

== ENCOUNTER 2022-04-19 17:13 | Outpatient (CLI) | payer MEDICARE ==
--- NOTE | 2022-04-20 09:26 | Ultrasound Report ---
PROCEDURE: Head or Neck Soft Tissue INDICATIONS: CERVICAL LYMPHADENOPATHY TECHNIQUE: Real-time scanning was performed of the thyroid gland, with image documentation. COMPARISON: None FINDINGS: Right: Thyroid lobe measures 4.2 x 1.2 x 1.3 cm, and is heterogeneous in echotexture. Left: Thyroid lobe measures 3.6 x 1 x 1.5 cm, and is heterogeneous in echotexture. Isthmus: 2 mm thick. Nodule number: One Location: Upper pole right thyroid lobe Size: 0.9 x 0.4 x 0.6 cm. Composition: Solid Echogenicity: Hypoechoic Shape: wider than tall. Margins: Smooth Echogenic foci: None Total points: 4 ACR TI-RADS category: Moderately suspicious A few scattered normal-appearing lymph nodes are seen in bilateral neck soft tissues. IMPRESSION: 1. Slightly atrophic-appearing thyroid gland with heterogeneous echotexture. Single moderately suspic ious subcentimeter right thyroid nodule as described above. Continued ultrasound follow-up is recomme nded. 2. Normal-appearing lymph nodes in bilateral neck soft tissue. No lymphadenopathy is seen. ACR TI-RADS definitions and recommendations: TI-RADS 1 (benign): 0 points. FNA not needed. TI-RADS 2 (not suspicious): 2 points. FNA not needed. TI-RADS 3 (mildly suspicious): 3 points. "FNA if 2.5 cm or larger, follow up if 1.5 cm or larger (at 1, 3, and 5 years). TI-RADS 4 (moderately suspicious): 4-6 points. "FNA if 1.5 cm or larger, follow up if 1 cm or larger (at 1, 2, 3, and 5 years). TI-RADS 5 (highly suspicious): 7 points or more. "FNA if 1 cm or larger, follow up if 0.5 cm or larger (every year for 5 years). Reviewed by: Pepe Nogueira MD on 04/20/2022 9:25 AM PDT Approved by: Pepe Nogueira MD on 04/20/2022 9:25 AM PDT Station ID: [id number]
== END 2022-04-19 17:14 | disposition home or self-care (01) ==
LOC: DI 17:13
PROVIDERS: ATTEND Nurse Practitioner
DX: R59.0 Localized enlarged lymph nodes (principal); E04.1 Nontoxic single thyroid nodule

== ENCOUNTER 2022-05-19 10:00 | Outpatient (CLI) | payer MEDICARE ==
--- NOTE | 2022-05-20 09:54 | Mammography Report ---
BILATERAL DIGITAL SCREENING MAMMOGRAM 3D/2D: 05/19/2022 CLINICAL: Routine screening. Comparison is made to exams dated: 05/18/2021 mammogram, 04/09/2020 mammogram, 06/15/2018 mammogram, a nd 04/20/2017 mammogram - [facility]. There are scattered areas of fibroglandular density in both breasts (category b / 25%-50% glandular t issue). There are benign vascular calcifications in the right breast. No significant masses, calcifications, or other findings are seen in either breast. There has been no significant interval change. IMPRESSION: BENIGN There is no mammographic evidence of malignancy. A 1 year screening mammogram is recommended. Based on the Tyrer Cuzick model (a risk assessment model) the patients lifetime risk is 2.6% and her 10 year risk is 2.1%. According to the ACR, ACS, and NCCN guidelines, an annual breast MRI exam babar g with mammogram is recommended if the patients lifetime risk is 20% or greater. This exam was interpreted at Station ID: [id number]. NOTE: For mammograms, a report in lay terms will be sent to the patient. Approximately 15% of breast malignancies will not be visualized mammographically. In the management of a palpable breast mass, a negative mammogram must not discourage biopsy of a clinically suspicious lesion. Electronically Signed By: Tra arizmendi/penrad:05/19/2022 21:33:42 ACR BI-RADS Category 2: Benign Finding(s) 3342F PARENCHYMAL PATTERN: (A) - The breast(s) demonstrate(s) scattered fibroglandular densities. BI-RADS CATEGORY: (2) - 2 RECOMMENDATION: (ANNUAL) - Recommend routine annual screening mammography. [id number] 1 year screening LATERALITY: (B)
== END 2022-05-19 10:01 | disposition home or self-care (01) ==
LOC: DI 10:00
PROVIDERS: ATTEND Nurse Practitioner
DX: Z12.31 Encounter for screening mammogram for malignant neoplasm of breast (principal)

== ENCOUNTER 2022-08-09 16:56 | Outpatient (CLI) | payer MEDICARE ==
[2022-08-09 16:11] LABS: BILIRUBIN,URINE NEGATIVE (NEGATIVE); GLUCOSE, URINE (UA) NEGATIVE (NEGATIVE); KETONES,URINE (UA) NEGATIVE (NEGATIVE); LEUKOCYTE ESTERASE, URINE SMALL (NEGATIVE); NITRITE,URINE NEGATIVE (NEGATIVE); OCCULT BLOOD,URINE NEGATIVE (NEGATIVE); PROTEIN,URINE NEGATIVE (NEGATIVE); UROBILINOGEN,URINE 0.2 (NORMAL) E.U./dL (NORMAL)
[2022-08-09 16:48] LABS: BACTERIA,URINE None Seen /HPF (None Seen); CLARITY,URINE CLEAR (CLEAR); RBC,URINE 0-5 /HPF (0-5); SQUAMOUS EPITHELIAL CELL,UR RARE Squamous (<= Few)
[2022-08-09 22:05] LABS: BACTERIAL VAGINOSIS DNA POSITIVE (NEGATIVE); CANDIDA GLABRATA DNA NEGATIVE (NEGATIVE); CANDIDA GROUP DNA POSITIVE (NEGATIVE); CANDIDA KRUSEI DNA NEGATIVE (NEGATIVE); TRICHOMONAS VAGINALIS DNA NEGATIVE (NEGATIVE)
[2022-08-10 00:38] LABS: CHLAMYDIA TRACHOMATIS DNA NEGATIVE (NEGATIVE); NEISSERIA GONORRHOEAE DNA NEGATIVE (NEGATIVE)
== END 2022-08-09 16:57 | disposition home or self-care (01) ==
LOC: LAB.WC 16:56
PROVIDERS: ATTEND Obstetrics & Gynecology
DX: N76.0 Acute vaginitis (principal)
CPT/HCPCS: 81001; 81514; 87086; 87252; 87491; 87591; 87661

== ENCOUNTER 2023-05-30 09:55 | Outpatient (CLI) | payer MEDICARE ==
[2023-05-30 11:58] LABS: BASOPHILS % (AUTO) 0.7 %; EOSINOPHILS # (AUTO) 0.1 10^3/uL (0.0-0.7); EOSINOPHILS % (AUTO) 1.6 %; HCT - HEMATOCRIT 38.4 % (37.0-47.0); HGB - HEMOGLOBIN 12.5 g/dL (12.0-16.0); LYMPHOCYTES # (AUTO) 1.6 10^3/uL (1.5-3.5); LYMPHOCYTES % (AUTO) 35.8 %; MEAN CORPUSCULAR HEMOGLOBIN 32.3 pg (27.0-31.0); MEAN CORPUSCULAR HGB CONC 32.6 g/dL (32.0-36.0); MEAN CORPUSCULAR VOLUME 99.2 fL (81.0-99.0); MEAN PLATELET VOLUME 10.5 fL (7.9-10.8); MONOCYTES # (AUTO) 0.4 10^3/uL (0.0-1.0); MONOCYTES % (AUTO) 8.8 %; NEUTROPHILS # (AUTO) 2.3 10^3/uL (1.5-6.6); NEUTROPHILS % (AUTO) 52.9 %; PLT - PLATELET COUNT 170 10^3/uL (130-450); RED BLOOD COUNT 3.87 10^6/uL (4.20-5.40); RED CELL DISTRIBUTION WIDTH 13.2 % (12.0-15.0); WHITE BLOOD COUNT 4.4 x10^3/uL (4.8-10.8)
[2023-05-30 12:33] LABS: ALBUMIN 4.3 g/dL (3.2-5.5); ALBUMIN/GLOBULIN RATIO 2.4 (1.0-2.2); BILIRUBIN,TOTAL 0.4 mg/dL (0.2-1.0); CALCIUM 9.6 mg/dL (8.5-10.3); CREATININE 0.7 mg/dL (0.6-1.3); POTASSIUM 4.3 mmol/L (3.5-4.5); TOTAL PROTEIN 6.1 g/dL (6.4-8.9)
[2023-05-30 12:34] LABS: THYROID STIMULATING HORMONE 4.17 uIU/mL (0.34-5.60)
== END 2023-05-30 09:56 | disposition home or self-care (01) ==
LOC: LAB.N 09:55
PROVIDERS: ATTEND Physician Assistant Medical
DX: M81.0 Age-related osteoporosis without current pathological fracture (principal); E03.9 Hypothyroidism, unspecified; J30.9 Allergic rhinitis, unspecified
CPT/HCPCS: 36415; 80053; 82306; 84443; 85025

== ENCOUNTER 2023-07-19 08:00 | Outpatient (CLI) | payer MEDICARE ==
[2023-07-19 17:53] LABS: BILIRUBIN,URINE NEGATIVE (NEGATIVE); GLUCOSE, URINE (UA) NEGATIVE (NEGATIVE); KETONES,URINE (UA) NEGATIVE (NEGATIVE); LEUKOCYTE ESTERASE, URINE NEGATIVE (NEGATIVE); NITRITE,URINE NEGATIVE (NEGATIVE); OCCULT BLOOD,URINE NEGATIVE (NEGATIVE); PROTEIN,URINE NEGATIVE (NEGATIVE); UROBILINOGEN,URINE 0.2 (NORMAL) E.U./dL (NORMAL)
[2023-07-19 17:58] LABS: CLARITY,URINE CLEAR (CLEAR)
== END 2023-07-19 23:59 | disposition home or self-care (01) ==
LOC: LAB.N 08:00
PROVIDERS: ATTEND Physician Assistant
DX: N30.00 Acute cystitis without hematuria (principal)
CPT/HCPCS: 81001; 81003; 87086

== ENCOUNTER 2023-09-12 13:18 | Outpatient (CLI) | payer MEDICARE | END 2023-09-12 13:19 | disposition home or self-care (01) | LOC: CAM 13:18 | PROVIDERS: ATTEND Physician Assistant Medical | DX: M54.12 Radiculopathy, cervical region (principal); M75.41 Impingement syndrome of right shoulder | CPT/HCPCS: 97810; 97811 ==

== ENCOUNTER 2023-09-19 13:05 | Outpatient (CLI) | payer MEDICARE | END 2023-09-19 13:06 | disposition home or self-care (01) | LOC: CAM 13:05 | PROVIDERS: ATTEND Physician Assistant Medical | DX: M75.41 Impingement syndrome of right shoulder (principal); M54.12 Radiculopathy, cervical region | CPT/HCPCS: 97810; 97811 ==

== ENCOUNTER 2023-09-26 13:16 | Outpatient (CLI) | payer MEDICARE | END 2023-09-26 13:17 | disposition home or self-care (01) | LOC: CAM 13:16 | PROVIDERS: ATTEND Physician Assistant Medical | DX: M75.41 Impingement syndrome of right shoulder (principal); M54.12 Radiculopathy, cervical region | CPT/HCPCS: 97810; 97811 ==

== ENCOUNTER 2023-10-17 13:10 | Outpatient (CLI) | payer MEDICARE | END 2023-10-17 13:11 | disposition home or self-care (01) | LOC: CAM 13:10 | PROVIDERS: ATTEND Physician Assistant Medical | DX: M75.41 Impingement syndrome of right shoulder (principal); M54.12 Radiculopathy, cervical region | CPT/HCPCS: 97810; 97811 ==

== ENCOUNTER 2024-01-26 11:09 | Outpatient (CLI) | payer MEDICARE | END 2024-01-26 11:10 | disposition home or self-care (01) | LOC: CAM 11:09 | PROVIDERS: ATTEND Physician Assistant Medical | DX: M75.41 Impingement syndrome of right shoulder (principal); M54.12 Radiculopathy, cervical region | CPT/HCPCS: 97810; 97811 ==

== ENCOUNTER 2024-01-31 12:56 | Outpatient (CLI) | payer MEDICARE | END 2024-01-31 12:57 | disposition home or self-care (01) | LOC: CAM 12:56 | PROVIDERS: ATTEND Physician Assistant Medical | DX: M75.41 Impingement syndrome of right shoulder (principal); M54.12 Radiculopathy, cervical region | CPT/HCPCS: 97810; 97811 ==

== ENCOUNTER 2024-02-06 14:36 | Outpatient (CLI) | payer MEDICARE | END 2024-02-06 14:37 | disposition home or self-care (01) | LOC: CAM 14:36 | PROVIDERS: ATTEND Physician Assistant Medical | DX: M75.41 Impingement syndrome of right shoulder (principal); M54.12 Radiculopathy, cervical region | CPT/HCPCS: 97810; 97811 ==

== ENCOUNTER 2024-02-13 14:28 | Outpatient (CLI) | payer MEDICARE | END 2024-02-13 14:29 | disposition home or self-care (01) | LOC: CAM 14:28 | PROVIDERS: ATTEND Physician Assistant Medical | DX: M75.41 Impingement syndrome of right shoulder (principal); M54.12 Radiculopathy, cervical region | CPT/HCPCS: 97810; 97811 ==

== ENCOUNTER 2024-02-28 09:49 | Outpatient (CLI) | payer MEDICARE | END 2024-02-28 09:50 | disposition home or self-care (01) | LOC: CAM 09:49 | PROVIDERS: ATTEND Physician Assistant Medical | DX: M75.41 Impingement syndrome of right shoulder (principal); M54.12 Radiculopathy, cervical region | CPT/HCPCS: 97810; 97811 ==

== ENCOUNTER 2024-03-13 11:04 | Outpatient (CLI) | payer MEDICARE | END 2024-03-13 11:05 | disposition home or self-care (01) | LOC: CAM 11:04 | PROVIDERS: ATTEND Physician Assistant Medical | DX: M75.41 Impingement syndrome of right shoulder (principal); M54.12 Radiculopathy, cervical region | CPT/HCPCS: 97810; 97811 ==

== ENCOUNTER 2024-03-22 11:02 | Outpatient (CLI) | payer MEDICARE | END 2024-03-22 11:03 | disposition home or self-care (01) | LOC: CAM 11:02 | PROVIDERS: ATTEND Physician Assistant Medical | DX: M75.41 Impingement syndrome of right shoulder (principal); M54.12 Radiculopathy, cervical region | CPT/HCPCS: 97810; 97811 ==

== ENCOUNTER 2024-03-27 10:57 | Outpatient (CLI) | payer MEDICARE | END 2024-03-27 10:58 | disposition home or self-care (01) | LOC: CAM 10:57 | PROVIDERS: ATTEND Physician Assistant Medical | DX: M75.41 Impingement syndrome of right shoulder (principal); M54.12 Radiculopathy, cervical region | CPT/HCPCS: 97810; 97811 ==

== ENCOUNTER 2024-04-03 10:52 | Outpatient (CLI) | payer MEDICARE | END 2024-04-03 10:53 | disposition home or self-care (01) | LOC: CAM 10:52 | PROVIDERS: ATTEND Physician Assistant Medical | DX: M75.41 Impingement syndrome of right shoulder (principal); M54.12 Radiculopathy, cervical region | CPT/HCPCS: 97810; 97811 ==